=== PATIENT | female | born 1990 | race Caucasian/White ===

== ENCOUNTER → 2017-08-13 | Outpatient (CLI) | payer MEDICAID ==
[~2017-08-13] MED LIST: MOTRIN800 MG PO; PHENERGAN25 M1 PO; PRENATAL 1+1)(P1 TAB PO; PROCARDIA XL30 MG PO; TYLENOL WITH C1 EACH PO
== END | disposition disaster alternative care site (69) ==
LOC: GLAB 08:00
DX: R73.09 Other abnormal glucose (principal)